=== PATIENT | female | born 1965 ===

== ENCOUNTER → 2024-08-21 10:15 | Outpatient (REF) | payer OTHER, SELFPAY | LOC: CLAB 10:15 | PROVIDERS: ATTENDING PHYSICIAN Specialist | DX: C44.319 Basal cell carcinoma of skin of other parts of face (principal); D22.9 Melanocytic nevi, unspecified; L82.0 Inflamed seborrheic keratosis | CPT/HCPCS: 88305; 88332; 88331 ==